=== PATIENT | male | born 1960 | race Caucasian/White ===

== ENCOUNTER 2018-10-27 21:56 | Emergency (ER) | payer OTHER ==
--- NOTE | 2018-10-27 22:04 | EDPHY ---
H & P Time Seen by Provider: 10/27/18 22:00 HPI/ROS: CHIEF COMPLAINT: Alcohol intoxication HISTORY OF PRESENT ILLNESS: The patient is a 58-year-old male who presents emergency department via EMS. Per report, the patient has been drinking this evening had a spa receptionist. He became belligerent. Police were notified. They were planning on taking the patient to the [facility] but the patient was noted to be mildly tachycardic with an elevated glucose of 395. Patient was brought to the emergency department for evaluation. When I interviewed the patient he reported that he has been drinking alcohol this evening. The patient is without complaints. He states he has been taking his medications regularly. He has no chest pain or shortness of breath. No abdominal pain. No nausea or vomiting. Patient states that he may have bumped his left elbow. He has no significant elbow pain. He has full range of motion of his left elbow. REVIEW OF SYSTEMS: 10 systems were reveiwed and are negative with the exception of the elements mentioned in the history of present illness. (Milly Huizar) Past Medical/Surgical History: Includes DM II (Milly Huizar) Physical Exam: Vitals noted GENERAL: No acute distress, alert. HEENT: Eyes normal to inspection, normal pharynx, no signs of dehydration. NECK: Normal, supple. RESPIRATORY: Clear to auscultation bilaterally, no rales, rhonchi or wheezing. CVS: Regular rate and rhythm, no rubs, murmurs, or gallops. ABDOMEN: Soft, nontender, nondistended, no organomegaly. BACK: Normal to inspection, no CVA tenderness. SKIN: Normal color, no rash, warm, dry. No pallor. EXTREMITIES: Left elbow 0.5 laceration. There is no active bleeding. No significant tenderness palpation. Full range of motion of the elbow. No pedal edema, no calf tenderness, no Homans sign or cords, no joint swelling. NEURO/PSYCH: Alert and oriented, intoxicated appearing, normal motor sensory exam. No obvious cranial nerve deficit. (Milly Huizar) Constitutional: Initial Vital Signs Temperature (C) 36.7 C 10/27/18 22:00 Heart Rate 86 10/27/18 22:00 Respiratory Rate 17 10/27/18 22:00 Blood Pressure 168/98 H 10/27/18 22:00 O2 Sat (%) 96 10/27/18 22:00 O2 Delivery Mode Room Air Allergies/Adverse Reactions: No Known Allergies Allergy (Unverified 10/27/18 22:04) Home Medications: Medication Instructions Recorded [place] 10/27/18 NK [No Known Home Meds] 10/27/18 Medical Decision Making ED Course/Re-evaluation: In the emergency department I met EMS on arrival. I took report from the animal bounty hunter. Chemistry panel was obtained. Patient wound was cleaned and dressed. I do not feel the patient needs laceration. The than i-STAT chemistry panel was ordered. Sodium was 138, potassium 4.5, chloride 102, BUN is 19, creatinine is slightly elevated 1.9, glucose is 370 There is no anion gap available on the point of care. Chemistry panel was ordered. Patient's creatinine was noted be 1.7. Anion gap was elevated at 17. Patient was given L of normal saline. Repeat chemistry will be ordered. 2300: Patient is signed out to Dr. Angelo at change of shift. If the patient' s anion gap chemistry panel improved she will be discharged home. If he continues to have acidosis and elevated glucose he will be further treated evaluated by Dr. Angelo. (Milly Huizar) 0211: The patient has had 2 L of fluid here, repeat chemistry shows the anion gap is closed. He was also given subcutaneous insulin. He is an insulin- dependent diabetic. His blood sugar has come down slightly. No evidence of DKA. Patient is requesting multiple times to be discharged. He is now sober he has been monitored over 4 hr in the emergency room. (Lars Angelo) Differential Diagnosis: My differential includes but is not limited to hyperglycemia, diabetes, elbow contusion, elbow laceration, alcohol intoxication, closed-head injury, DKA ( Milly Huizar) - Data Points Laboratory Results: Laboratory Results 10/27/18 22:16 10/28/18 01:25 10/28/18 10/27/18 10/27/18 01:25 23:45 22:20 WBC RBC Hgb POC Hgb 13.9 gm/dL gm/dL (13.7-17.5) Hct POC Hct 41 % % (40-51) MCV MCH MCHC RDW Plt Count MPV Neut % (Auto) Lymph % (Auto) [place] % (Auto) Eos % (Auto) Baso % (Auto) Nucleat RBC Rel Count Absolute Neuts (auto) Absolute Lymphs (auto) Absolute Monos (auto) Absolute Eos (auto) Absolute Basos (auto) Absolute Nucleated RBC Immature Gran % Immature Gran # POC Sodium 138 mEq/L mEq/L (135-145) Sodium 139 mEq/L mEq/L 136 mEq/L mEq/L (135-145) (135-145) POC Potassium 4.5 mEq/L mEq/L (3.3-5.0) Potassium 5.2 mEq/L mEq/L 5.0 mEq/L mEq/L (3.5-5.2) (3.5-5.2) POC Chloride 102 mEq/L mEq/L (97-110) Chloride 106 mEq/L mEq/L 103 mEq/L mEq/L (97-110) (97-110) Carbon Dioxide 22 mEq/l mEq/l 20 mEq/l L mEq/l (22-31) (22-31) Anion Gap 11 mEq/L mEq/L 13 mEq/L mEq/L (6-14) (6-14) POC BUN 19 mg/dL mg/dL (7-23) BUN 18 mg/dL mg/dL 20 mg/dL mg/dL (7-23) (7-23) Creatinine 1.4 mg/dL H mg/dL 1.5 mg/dL H mg/dL (0.7-1.3) (0.7-1.3) POC Creatinine 1.9 mg/dL H mg/dL (0.7-1.3) Estimated GFR 52 48 Glucose 344 mg/dL H mg/dL 372 mg/dL H mg/dL (70-100) (70-100) POC Glucose 370 mg/dL H mg/dL (70-100) Calcium 8.6 mg/dL mg/dL 9.0 mg/dL mg/dL (8.5-10.4) (8.5-10.4) 10/27/18 10/27/18 22:16 22:16 WBC 11.24 10^3/uL H 10^3/uL (3.80-9.50) RBC 4.76 10^6/uL 10^6/uL (4.40-6.38) Hgb 13.5 g/dL L g/dL (13.7-17.5) POC Hgb Hct 39.0 % L % (40.0-51.0) POC Hct MCV 81.9 fL fL (81.5-99.8) MCH 28.4 pg pg (27.9-34.1) MCHC 34.6 g/dL g/dL (32.4-36.7) RDW 14.9 % % (11.5-15.2) Plt Count 286 10^3/uL 10^3/uL (150-400) MPV 10.4 fL fL (8.7-11.7) Neut % (Auto) 59.5 % % (39.3-74.2) Lymph % (Auto) 28.7 % % (15.0-45.0) [place] % (Auto) 7.7 % % (4.5-13.0) Eos % (Auto) 1.3 % % (0.6-7.6) Baso % (Auto) 0.5 % % (0.3-1.7) Nucleat RBC Rel Count 0.2 % % (0.0-0.2) Absolute Neuts (auto) 6.67 10^3/uL H 10^3/uL (1.70-6.50) Absolute Lymphs (auto) 3.23 10^3/uL H 10^3/uL (1.00-3.00) Absolute Monos (auto) 0.87 10^3/uL H 10^3/uL (0.30-0.80) Absolute Eos (auto) 0.15 10^3/uL 10^3/uL (0.03-0.40) Absolute Basos (auto) 0.06 10^3/uL 10^3/uL (0.02-0.10) Absolute Nucleated RBC 0.02 10^3/uL H 10^3/uL (0-0.01) Immature Gran % 2.3 % H % (0.0-1.1) Immature Gran # 0.26 10^3/uL H 10^3/uL (0.00-0.10) POC Sodium Sodium 137 mEq/L mEq/L (135-145) POC Potassium Potassium 4.8 mEq/L mEq/L (3.5-5.2) POC Chloride Chloride 101 mEq/L mEq/L (97-110) Carbon Dioxide 19 mEq/l L mEq/l (22-31) Anion Gap 17 mEq/L H mEq/L (6-14) POC BUN BUN 20 mg/dL mg/dL (7-23) Creatinine 1.7 mg/dL H mg/dL (0.7-1.3) POC Creatinine Estimated GFR 41 Glucose 370 mg/dL H mg/dL (70-100) POC Glucose Calcium 9.3 mg/dL mg/dL (8.5-10.4) Medications Given: Discontinued Medications Sodium Chloride (Ns) 1,000 mls @ 0 mls/hr IV EDNOW ONE; Wide Open PRN Reason: Protocol Stop: 10/27/18 22:45 Last Admin: 10/27/18 22:45 Dose: 1,000 mls Sodium Chloride (Ns) 1,000 mls @ 0 mls/hr IV ONCE ONE PRN Reason: Wide Open Stop: 10/28/18 00:10 Last Admin: 10/28/18 00:18 Dose: 1,000 mls Insulin Human Regular (Humulin R) 6 unit SC EDNOW ONE Stop: 10/28/18 00:22 Last Admin: 10/28/18 00:25 Dose: 6 units Point of Care Test Results: Chemistry 10/27/18 22:20 POC Sodium 138 mEq/L mEq/L (135-145) POC Potassium 4.5 mEq/L mEq/L (3.3-5.0) POC Chloride 102 mEq/L mEq/L (97-110) POC BUN 19 mg/dL mg/dL (7-23) POC Creatinine 1.9 mg/dL H mg/dL (0.7-1.3) POC Glucose 370 mg/dL H mg/dL (70-100) ISTAT H&H 10/27/18 22:20 POC Hgb 13.9 gm/dL gm/dL (13.7-17.5) POC Hct 41 % % (40-51) Departure - Departure Disposition: Home, Routine, Self-Care Clinical Impression: Hyperglycemia Alcoholic intoxication Qualifiers: Complication of substance-induced condition: uncomplicated Qualified Code(s): F10.920 - Alcohol use, unspecified with intoxication, uncomplicated Elbow abrasion Qualifiers: Encounter type: initial encounter Laterality: left Qualified Code(s): S50.312A - Abrasion of left elbow, initial encounter Condition: Good Instructions: Alcohol Intoxication (ED) Additional Instructions: Return with increasing elbow pain, fever, or any other concerns Referrals: Makayla Sheridan MD [Medical Doctor] - 5-7 days, call for appt.
[2018-10-27] MEDS ORDERED: NS 1,000 ML IV ONE (22:44)
[2018-10-27 22:58] LABS: PLATELET COUNT 286 10^3/uL (150-400)
[2018-10-28] MEDS ORDERED: NS 1,000 ML IV ONE (00:09)
[2018-10-28] MEDS ORDERED: INSULIN REGULAR HUMAN 100 UNIT/ML UNIT SC ONE (00:21)
[2018-10-28 02:22] VITALS: BP 153/100
== END 2018-10-28 02:40 | disposition left against medical advice (07) ==
DX: S50.312A Abrasion of left elbow, initial encounter (principal); E11.65 Type 2 diabetes mellitus with hyperglycemia; F10.920 Alcohol use, unspecified with intoxication, uncomplicated; E86.9 Volume depletion, unspecified; W19.XXXA Unspecified fall, initial encounter; Y92.9 Unspecified place or not applicable; Y93.9 Activity, unspecified; Y99.9 Unspecified external cause status
CPT/HCPCS: 82435-PO; 82565-PO; 82947-PO; 84132-PO; 84295-PO; 84520-PO; 85014-ER; J1815